=== PATIENT | male | born 1985 | race Caucasian/White ===

== ENCOUNTER 2017-05-23 18:20 | Emergency (ER) | payer OTHER ==
[~2017-05-23] VITALS: Ht 177.8 cm; Wt 55.0 kg
[~2017-05-23 18:20] MED LIST: BACT PO; CLEO300C2 PO; OXYC20TA26 PO; XANA2TAB2 PO
[2017-05-23 18:33] VITALS: BP 148/78; PULSE 55; RESP 16; TEMP 98.1; O2SAT 98
[2017-05-23 18:58] VITALS: BP 148/78; PULSE 55; RESP 20; TEMP 98.1; O2SAT 98
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
[2017-05-23] MEDS ORDERED: ROBA500T PO (20:21)
[2017-05-23] MEDS ORDERED: MELO-1 PO (20:21)
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
[2017-05-23] MEDS ORDERED: KETOROLAC TROMETHAMINE 60 MG/2 ML (IM) VIAL IM ONE (20:30)
== END 2017-05-23 20:34 | disposition home or self-care (01) ==
LOC: PHED 18:20 → PHEFT 20:34
DX: S93.402A Sprain of unspecified ligament of left ankle, initial encounter (principal); S29.012A Strain of muscle and tendon of back wall of thorax, initial encounter; M54.5 Low back pain; F17.200 Nicotine dependence, unspecified, uncomplicated; Z87.39 Personal history of other diseases of the musculoskeletal system and connective tissue; V89.2XXA Person injured in unspecified motor-vehicle accident, traffic, initial encounter
CPT/HCPCS: 73610; 99284; J1885